=== PATIENT | male | born 1960 | race Hispanic/Latino ===

== ENCOUNTER 2017-11-03 19:28 | Emergency (ER) | payer MEDICAID ==
[2017-11-03] MEDS ORDERED: ONDANSETRON HCL 4 MG/2 ML VIAL ONE (20:26)
[2017-11-03] MEDS ORDERED: SODIUM CHLORIDE 0.9% 1000ML 1,000 ML IV ONE (20:26)
[2017-11-03] MEDS ORDERED: MORPHINE SULFATE 8 MG/ML VIAL ONE (20:26)
[2017-11-03] MEDS ORDERED: KETAMINE HCL 100 MG/ML 5ML VIAL IJ ONE (20:28)
[2017-11-03] MEDS ORDERED: LORAZEPAM 2 MG/ML 1 ML VIAL ONE (20:36)
[2017-11-03] MEDS ORDERED: HYDRALAZINE HCL 20 MG/ML VIAL ONE (20:50)
== END 2017-11-03 22:12 | disposition home or self-care (01) ==
LOC: EDH 19:28
DX: S43.085A Other dislocation of left shoulder joint, initial encounter (principal); J44.9 Chronic obstructive pulmonary disease, unspecified; G89.29 Other chronic pain; M54.5 Low back pain; Z98.890 Other specified postprocedural states; X50.9XXA Other and unspecified overexertion or strenuous movements or postures, initial encounter; Y93.89 Activity, other specified; Y92.89 Other specified places as the place of occurrence of the external cause; Y99.8 Other external cause status
CPT/HCPCS: 23650; 73020; 73030; 96374; 96375; 99152; 99153; 99285; J0360; J2060; J2270; J2405; J3490; J7030

== ENCOUNTER 2019-03-27 18:13 | Emergency (ER) | payer MEDICAID ==
[2019-03-27 19:12] LABS: BASOPHILS % (AUTO) 0.6 % (0.0-5.0); EOSINOPHILS % (AUTO) 3.7 % (0.0-8.0); LYMPHOCYTES % (AUTO) 16.3 % (21.0-51.0); MEAN CORPUSCULAR HEMOGLOBIN 29.3 pg (27.0-33.0); MEAN CORPUSCULAR HGB CONC 33.8 g/dL (32.0-36.0); MEAN CORPUSCULAR VOLUME 86.8 fL (79-99); MONOCYTES % (AUTO) 8.3 % (3.0-13.0); NEUTROPHILS % (AUTO) 71.1 % (40.0-77.0); NUCLEATED RED BLOOD CELLS 0.1 % (0.0-0.19); PLATELET COUNT (AUTO) 189 K/uL (130-400); RED BLOOD CELL COUNT(AUTO) 4.26 MIL/uL (4.50-6.20); RED CELL DISTRIBUTION WIDTH 14.2 % (11.0-15.5); WHITE BLOOD COUNT (AUTO) 6.6 K/uL (4.8-10.8)
[2019-03-27 19:19] LABS: CREATININE 1.2 mg/dL (0.5-1.5); POTASSIUM 4.1 mmol/L (3.5-5.1)
[2019-03-27 19:24] LABS: ALBUMIN 3.6 g/dL (3.5-5.0); BILIRUBIN,TOTAL 0.5 mg/dL (0.2-1.0); TOTAL PROTEIN, SERUM 6.7 g/dL (6.0-8.3)
[2019-03-27 19:33] LABS: INR 0.94 (0.85-1.15); PARTIAL THROMBOPLASTIN TIME 26.6 SEC (26.3-35.5); PROTHROMBIN TIME 9.9 SEC (9.6-11.6)
== END 2019-03-27 19:55 | disposition home or self-care (01) ==
LOC: EDH 18:13
DX: M79.662 Pain in left lower leg (principal); M79.661 Pain in right lower leg; I10 Essential (primary) hypertension; J44.9 Chronic obstructive pulmonary disease, unspecified; G89.29 Other chronic pain; Z98.890 Other specified postprocedural states
CPT/HCPCS: 36415; 80053; 85025; 85610; 85730; 93970

== ENCOUNTER 2019-05-01 21:52 | Emergency (ER) | payer MEDICAID | END 2019-05-01 23:11 | disposition home or self-care (01) | LOC: EDH 21:52 | DX: M24.412 Recurrent dislocation, left shoulder (principal); I10 Essential (primary) hypertension; I25.10 Atherosclerotic heart disease of native coronary artery without angina pectoris; J44.9 Chronic obstructive pulmonary disease, unspecified; G89.29 Other chronic pain; Z98.890 Other specified postprocedural states | CPT/HCPCS: 23650; 73020; 73030 ==